=== PATIENT | female | born 1960 | race Caucasian/White ===

== ENCOUNTER 2023-06-18 07:03 | Day surgery (SDC) | payer BC, OTHER ==
[2023-06-18] MEDS ORDERED: Sodium Chloride 0.9% 1,000 ML IV SCH (07:30)
[2023-06-18] MEDS ORDERED: Propofol 200 MG/20 ML SDV ONE (07:33)
[2023-06-18] MEDS ORDERED: fentaNYL 50 MCG/ML SDV ONE (07:33)
[2023-06-18] MEDS ORDERED: Midazolam 1 MG/ML 2 ML SDV ONE (07:33)
== END 2023-06-18 09:48 | disposition home or self-care (01) ==
LOC: JP.SDS 07:03
PROVIDERS: ATTEND Surgery
DX: Z12.11 Encounter for screening for malignant neoplasm of colon (principal); D12.2 Benign neoplasm of ascending colon; K21.9 Gastro-esophageal reflux disease without esophagitis; Z88.2 Allergy status to sulfonamides
CPT/HCPCS: 45380; 88305; J2250; J2704; J3010; J7030